=== PATIENT | male | born 1980 | race Caucasian/White ===

== ENCOUNTER 2019-05-07 00:19 | Emergency (ER) | payer OTHER ==
[~2019-05-07] VITALS: Ht 175.3 cm; Wt 74.4 kg
[2019-05-07 00:29] VITALS: BP 125/83; Ht 175.3 cm; Wt 74.4 kg
== END 2019-05-07 05:50 | disposition left against medical advice (07) ==
LOC: ED 00:19
DX: Z53.21 Procedure and treatment not carried out due to patient leaving prior to being seen by health care provider (principal)